=== PATIENT | female | born 1985 | race African-American/Black ===

== ENCOUNTER 2021-01-21 11:43 | Outpatient (CLI) | payer BC | END 2021-01-21 11:44 | disposition home or self-care (01) | LOC: CSHLAB 11:43 | PROVIDERS: ATTEND Obstetrics & Gynecology | DX: Z01.812 Encounter for preprocedural laboratory examination (principal); Z20.822 Contact with and (suspected) exposure to COVID-19 | CPT/HCPCS: 84703; 85027; 86850; 86900; 86901; U0003; U0005 ==

== ENCOUNTER 2021-01-26 08:03 | Day surgery (SDC) | payer BC ==
[2021-01-21 12:46] LABS: Hemoglobin 11.2 g/dL (12.0-15.5); Mean Corpuscular HGB CONC 35.2 g/dL (32.0-36.0); Mean Corpuscular Hemoglobin 30.1 pg (27.0-33.0); Mean Corpuscular Volume 85.5 fl (81.6-98.3); Mean Platelet Volume 11.5 fl (7.4-10.4); Platelet Count 260 10x3/uL (150-450); RBC Distribution Width 13.9 % (11.5-14.5); Red Blood Cell (RBC) Count 3.72 10x6/uL (3.90-5.03); White Blood Cell (WBC) Count 7.7 10x3/uL (3.5-10.5)
[2021-01-21 13:38] LABS: BHCG - Serum Negative (NEGATIVE); Pregs Control Background? CLEAR/WHITE (CLR/WHITE); Pregs Control Bar Appear? YES (CONTROL BAR)
[2021-01-22 14:13] LABS: SARS-CoV-2 PCR by NAA Not Detected (NotDetected)
[2021-01-24 13:42] VITALS: BMI 43.0
[2021-01-26] MEDS ORDERED: CeleCOXIB 100 MG CAP ONE (08:09)
[2021-01-26] MEDS ORDERED: Gabapentin 300 MG CAP ONE (08:09)
[2021-01-26] MEDS ORDERED: Famotidine/PF 20 mg/2ml Vial ONE (08:10)
[2021-01-26] MEDS ORDERED: Lidocaine 1% MPF 2 ML VIAL ONE (08:10)
[2021-01-26] MEDS ORDERED: Bupivacaine PF 0.5% 30 ML VIAL ONE (09:32)
[2021-01-26] MEDS ORDERED: Lidocaine 1% PF 5 ML VIAL ONE (09:32)
[2021-01-26] MEDS ORDERED: Fentanyl 250 MCG/5 ML VIAL ONE (09:32)
[2021-01-26] MEDS ORDERED: Ondansetron PF 4 MG/2 ML Vial ONE (09:32)
[2021-01-26] MEDS ORDERED: Rocuronium Bromide 10 MG/ML (10ML VIAL) ONE (09:32)
[2021-01-26] MEDS ORDERED: Midazolam HCl 2 mg/2 ml Vial ONE ×2 (09:32→10:00)
[2021-01-26] MEDS ORDERED: PROPOFOL 20 ML ONE (09:32)
[2021-01-26] MEDS ORDERED: EPINEPHrine 1 MG/ML AMP ONE (09:32)
[2021-01-26] MEDS ORDERED: Dexamethasone 20 MG/5 ML VIAL ONE (09:33)
[2021-01-26] MEDS ORDERED: Ketorolac Tromethamine 30 MG/ML VIAL ONE (09:33)
[2021-01-26] MEDS ORDERED: Glycopyrrolate 0.2 MG/ML 5 ML SYRINGE ONE (09:33)
[2021-01-26] MEDS ORDERED: Meperidine HCl/PF 25 MG/ML VIAL ONE (12:53)
[2021-01-26] MEDS ORDERED: HYDROcodone/Acetaminophen 5/325 mg Tablet ONE (13:54)
== END 2021-01-26 14:26 | disposition home or self-care (01) ==
LOC: CSHSDC 08:03
PROVIDERS: ATTEND Obstetrics & Gynecology
PROC: 0UT94ZZ Resection of Uterus, Percutaneous Endoscopic Approach (ICD-10-PCS; principal; 2021-01-26)
PROC: 0UT74ZZ Resection of Bilateral Fallopian Tubes, Percutaneous Endoscopic Approach (ICD-10-PCS; principal; 2021-01-26)
DX: D25.9 Leiomyoma of uterus, unspecified (principal); N80.0 Endometriosis of uterus; N83.202 Unspecified ovarian cyst, left side; K59.09 Other constipation; K57.30 Diverticulosis of large intestine without perforation or abscess without bleeding; Z86.010 Personal history of colon polyps; Z98.51 Tubal ligation status; Z20.822 Contact with and (suspected) exposure to COVID-19
CPT/HCPCS: 36415; 84703; 85027; 86850; 86900; 86901; 88307; C1776; J0171; J0690; J1100; J1885; J2175; J2250; J2405; J2704; J3010; S0020; S0028; U0003; U0005